=== PATIENT | male | born 2005 | race Caucasian/White ===

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

== ENCOUNTER 2025-08-04 16:25 | Emergency (ER) | payer BC | END 2025-08-04 18:33 | disposition home or self-care (01) | LOC: JD.ED 16:25 | DX: Z77.098 Contact with and (suspected) exposure to other hazardous, chiefly nonmedicinal, chemicals (principal); Z86.16 Personal history of COVID-19 | CPT/HCPCS: 99282; 99284 ==